=== PATIENT | male | born 1965 | race Caucasian/White ===

== ENCOUNTER 2020-07-24 17:33 | Emergency (ER) | payer BC ==
[2020-07-24] MEDS ORDERED: cloNIDine HCL 0.1 MG TAB ONE (20:06)
--- NOTE | 2020-07-24 20:43 | ER ---
Nurse's Notes [facility] Name: Johnny Petersen III Age: 54 yrs Sex: Male : 1965 Arrival Date: 07/24/2020 Time: 17:34 Bed 30 Private MD: Diagnosis: HYPERTENSION NEW DIAGNOSIS;HYPERTENSIVE URGENCY Presentation: 07/24 17:40 Chief complaint: Patient states: Was a at meeting 3 hours [employer], when I got up I got ca1 dizzy and the dizziness hasn't gone away. BP at home 150/105. Coronavirus screen: Client denies travel out of the [place] in the last 14 days. At this time, the client does not indicate any symptoms associated with coronavirus-19. Ebola Screen: Patient negative for fever greater than or equal to 101.5 degrees Fahrenheit, and additional compatible Ebola Virus Disease symptoms Patient denies exposure to infectious person. Patient denies travel to an Ebola-affected area in the 21 days before illness onset. No symptoms or risks identified at this time. Initial Sepsis Screen: Does the patient meet any 2 criteria? No. Patient's initial sepsis screen is negative. Does the patient have a suspected source of infection? No. Patient's initial sepsis screen is negative. Risk Assessment: Do you want to hurt yourself or someone else? Patient reports no desire to harm self or others. Onset of symptoms was July 24, 2020. 17:40 Method Of Arrival: Ambulatory ca1 17:40 Acuity: ANA 2 ca1 Triage Assessment: 20:30 General: Appears in no apparent distress. Behavior is calm, cooperative. iw Historical: - Allergies: 17:45 No Known Allergies; ca1 - Home Meds: 17:45 None [Active]; ca1 - PMHx: 17:45 None; ca1 - PSHx: 17:45 None; ca1 - Immunization history:: Junaid and Junaid Flu vaccine is up to date. - Social history:: Smoking status: Patient denies any tobacco usage or history of. Screenin:30 Abuse screen: Denies threats or abuse. Denies injuries from another. Nutritional iw screening: No deficits noted. Tuberculosis screening: No symptoms or risk factors identified. Fall Risk None identified. Assessment: 20:30 General: Appears in no apparent distress. comfortable. Pain: Denies pain. Neuro: Level iw of Consciousness is awake, alert, obeys commands, Oriented to person, place, time, situation, Moves all extremities. Full function. Cardiovascular: Patient's skin is warm and dry. Respiratory: Respiratory effort is even, unlabored, Respiratory pattern is regular, symmetrical. Derm: Skin is intact, is healthy with good turgor. Musculoskeletal: Range of motion: intact in all extremities. Vital Signs: 17:40 BP 183 / 86; Pulse 49; Resp 18; Temp 97.4(TE); Pulse Ox 100% ; Weight 89.36 kg; Height ca1 6 ft. 1 in. (185.42 cm) (R); Pain 0/10; 20:33 BP 160 / 91; Pulse 51; Resp 16 S; iw 20:45 BP 133 / 83; Pulse 51; iw 17:40 Body Mass Index 25.99 (89.36 kg, 185.42 cm) ca1 ED Course: 17:34 Patient arrived in ED. as 17:44 Triage completed. ca1 17:45 Arm band placed on right wrist. ca1 19:16 Diogenes Serna MD is Attending Physician. tw4 20:30 Patient has correct armband on for positive identification. iw 20:30 No provider procedures requiring assistance completed. Patient did not have IV access iw during this emergency room visit. 20:42 Frantz García MD is Referral Physician. tw4 20:42 Hugh Villar MD is Referral Physician. tw4 20:44 Freida Baldwin, DAVID is Primary Nurse. iw Administered Medications: 19:50 Drug: cloNIDine 0.1 mg Route: PO; jb4 20:30 Follow up: Response: No adverse reaction; Blood pressure is lowered iw 20:45 Not Given (Hemodynamic Parameters): cloNIDine 0.1 mg PO once iw Outcome: 20:42 Discharge ordered by . tw4 20:58 Discharged to home ambulatory, with family. iw 20:58 Condition: good 20:58 Discharge instructions given to patient, family, Instructed on discharge instructions, follow up and referral plans. medication usage, Demonstrated understanding of instructions, follow-up care, medications, Prescriptions given X 1. 20:59 Patient left the ED. iw Signatures: Cristy Joyce Irene, RN RN iw Robert Stone RN RN jb4 Diogenes Serna MD MD tw4 Kamille Patel RN RN ca1
--- NOTE | 2020-07-24 20:43 | EDPHYS ---
Physician Documentation [facility] Name: Johnny Petersen III Age: 54 yrs Sex: Male : 1965 Arrival Date: 07/24/2020 Time: 17:34 Bed 30 Private MD: ED Physician Diogenes Serna HPI: 07/25 07:00 This 54 yrs old Male presents to ER via Ambulatory with complaints of High tw4 Blood Pressure, Dizziness. 07:00 The patient has elevated blood pressure and discovered this at home. Onset: The tw4 symptoms/episode began/occurred today. The patient has not experienced similar symptoms in the past. 07:01 Associated signs and symptoms: Pertinent positives: dizziness. Severity of symptoms: At tw4 its worst the blood pressure was 188 mm Hg, in the emergency department the blood pressure is. Severity of symptoms: At its worst the blood pressure was moderate, just prior to arrival, earlier today, in the emergency department the blood pressure is improved. Historical: - Allergies: 07/24 17:45 No Known Allergies; ca1 - Home Meds: 17:45 None [Active]; ca1 - PMHx: 17:45 None; ca1 - PSHx: 17:45 None; ca1 - Immunization history:: Junaid and Junaid Flu vaccine is up to date. - Social history:: Smoking status: Patient denies any tobacco usage or history of. ROS: 07/25 07:00 Constitutional: Negative for fever, chills, and weight loss, Eyes: Negative for injury, tw4 pain, redness, and discharge, Cardiovascular: Negative for chest pain, palpitations, and edema, Respiratory: Negative for shortness of breath, cough, wheezing, and pleuritic chest pain, Abdomen/GI: Negative for abdominal pain, nausea, vomiting, diarrhea, and constipation, Back: Negative for injury and pain, Skin: Negative for injury, rash, and discoloration, Neuro: Negative for headache, weakness, numbness, tingling, and seizure. Exam: 07:01 Constitutional: This is a well developed, well nourished patient who is awake, alert, tw4 and in no acute distress. Head/Face: Normocephalic, atraumatic. Neck: Trachea midline, no thyromegaly or masses palpated, and no cervical lymphadenopathy. Supple, full range of motion without nuchal rigidity, or vertebral point tenderness. No Meningismus. Chest/axilla: Normal chest wall appearance and motion. Nontender with no deformity. No lesions are appreciated. Cardiovascular: Regular rate and rhythm with a normal S1 and S2. No gallops, murmurs, or rubs. Normal PMI, no JVD. No pulse deficits. Respiratory: Lungs have equal breath sounds bilaterally, clear to auscultation and percussion. No rales, rhonchi or wheezes noted. No increased work of breathing, no retractions or nasal flaring. Abdomen/GI: Soft, non-tender, with normal bowel sounds. No distension or tympany. No guarding or rebound. No evidence of tenderness throughout. MS/ Extremity: Pulses equal, no cyanosis. Neurovascular intact. Full, normal range of motion. Neuro: Awake and alert, GCS 15, oriented to person, place, time, and situation. Cranial nerves II-XII grossly intact. Motor strength 5/5 in all extremities. Sensory grossly intact. Cerebellar exam normal. Normal gait. Vital Signs: 07/24 17:40 BP 183 / 86; Pulse 49; Resp 18; Temp 97.4(TE); Pulse Ox 100% ; Weight 89.36 kg; Height ca1 6 ft. 1 in. (185.42 cm) (R); Pain 0/10; 20:33 BP 160 / 91; Pulse 51; Resp 16 S; iw 20:45 BP 133 / 83; Pulse 51; iw 17:40 Body Mass Index 25.99 (89.36 kg, 185.42 cm) ca1 MDM: 19:56 Patient medically screened. tw4 07/25 07:01 Differential diagnosis: hypertensive crisis, Malignant HTN. Data reviewed: vital signs, tw4 nurses notes. Data interpreted: Pulse oximetry: Interpretation: normal. Counseling: I had a detailed discussion with the patient and/or guardian regarding: the historical points, exam findings, and any diagnostic results supporting the discharge/admit diagnosis. Medication response: clonidine reduced the patient's elevated blood pressure to within acceptable limits. Response to treatment: the patient's symptoms have markedly improved after treatment, and as a result, I will discharge patient. Special discussion: I discussed with the patient/guardian in detail that at this point there is no indication for admission to the hospital. It is understood, however, that if the symptoms persist or worsen the patient needs to return immediately for re-evaluation. Administered Medications: 07/24 19:50 Drug: cloNIDine 0.1 mg Route: PO; jb4 20:30 Follow up: Response: No adverse reaction; Blood pressure is lowered iw 20:45 Not Given (Hemodynamic Parameters): cloNIDine 0.1 mg PO once iw Disposition: 07/24/20 20:42 Discharged to Home. Impression: HYPERTENSION NEW DIAGNOSIS, HYPERTENSIVE URGENCY. - Condition is Stable. - Discharge Instructions: Hypertension. - Prescriptions for Norvasc 5 mg Oral Tablet - take 1 tablet by ORAL route once daily; 30 tablet. - Medication Reconciliation Form, Thank You Letter, Antibiotic Education, Prescription Opioid Use form. - Follow up: Private Physician; When: Upon discharge from the Emergency Department; Reason: Recheck today's complaints, Continuance of care, Re-evaluation by your physician. Follow up: Frantz García MD; When: Upon discharge from the Emergency Department; Reason: Recheck today's complaints, Continuance of care, Re-evaluation by your physician. Follow up: Hugh Villar MD; When: Upon discharge from the Emergency Department; Reason: Recheck today's complaints, Continuance of care, Re-evaluation by your physician. - Problem is new. - Symptoms have improved. Signatures: Freida Baldwin, RN DAVID Robert Stone RN RN jb4 Diogenes Serna MD MD [facility] Kamille Patel RN RN ca1 Corrections: (The following items were deleted from the chart) 20:59 20:42 07/24/2020 20:42 Discharged to Home. Impression: HYPERTENSION NEW DIAGNOSIS; iw HYPERTENSIVE URGENCY. Condition is Stable. Forms are Medication Reconciliation Form, Thank You Letter, Antibiotic Education, Prescription Opioid Use. Follow up: Private Physician; When: Upon discharge from the Emergency Department; Reason: Recheck today's complaints, Continuance of care, Re-evaluation by your physician. Follow up: Frantz García; When: Upon discharge from the Emergency Department; Reason: Recheck today's complaints, Continuance of care, Re-evaluation by your physician. Follow up: Hugh Villar; When: Upon discharge from the Emergency Department; Reason: Recheck today's complaints, Continuance of care, Re-evaluation by your physician. Problem is new. Symptoms have improved. 4 07/25 07:00 Associated signs and symptoms: The patient has no apparent associated signs or [facility] symptoms, 4 : 07:00 Severity of symptoms: At its worst the blood pressure was severe, in the [facility] emergency department the blood pressure is unchanged, [facility]
[2020-07-24 21:20] VITALS: TEMP 97.4; O2SAT 100
[2020-07-24 21:23] VITALS: BP 133/83
== END 2020-07-24 20:59 | disposition home or self-care (01) ==
LOC: ER 17:33
DX: I16.0 Hypertensive urgency (principal); I10 Essential (primary) hypertension
CPT/HCPCS: 99283